=== PATIENT | male | born 1955 | race Caucasian/White ===

== ENCOUNTER 2020-04-01 07:53 | Day surgery (SDC) | payer OTHER ==
--- NOTE | 2020-03-26 15:19 | HP ---
DATE OF SURGERY: 04/01/2020 HISTORY OF PRESENT ILLNESS: The patient is a 64 year-old male who presented to the office for colonoscopy. The patient reports that his last colonoscopy was prior to his colon surgery and that he had some colon polyps. The patient had sigmoid resection with anastomosis for stenosis and diverticulitis in 2017. Lately, he has had some low back pain, some constipation. He denies any rectal bleeding. He reports a bowel movement every other day. He denies family history of colon cancer. PAST MEDICAL HISTORY: Enlarged prostate. Reflux. Headaches. Chronic back pain. Hypertension. PAST SURGICAL HISTORY: Knee surgery. Arm surgery. MEDICATIONS: Omeprazole. Tamsulosin. Metoprolol. Aspirin. Topiramate. ALLERGIES: NKDA. FAMILY HISTORY: Negative. SOCIAL HISTORY: Negative. REVIEW OF SYSTEMS: CONSTITUTIONAL: Denies fever or chills. CHEST: Denies shortness of breath or cough. CVS: Denies chest pain. ABDOMEN: Denies abdominal pain. Reports some constipation. Denies diarrhea, nausea, vomiting or rectal bleeding. : Denies history of hematuria. EXTREMITIES: Denies Swelling. PHYSICAL EXAMINATION: GENERAL: No acute distress. HEENT: No jaundice. Oral mucosa moist. NECK: No JVD. CHEST: Nonlabored. No shortness of breath. ABDOMEN: Soft, nondistended, nontender. EXTREMITIES: No edema. INTEGUMENTARY: Warm, pink, no rash. NEUROLOGIC: Alert, awake, oriented. PSYCHIATRIC: Appropriate mood and affect. ASSESSMENT: Change in bowel habits, constipation and lower abdominal pain, back pain. PLAN: Colonoscopy with Dr. Sai Gaviria. As dictated by Ila Block NP.
[2020-04-01] MEDS ORDERED: Lactated Ringers 1,000 ML IV ONE ×2 (07:57→11:56)
[2020-04-01] MEDS ORDERED: Lactated Ringers 1,000 ML IV SCH (08:30)
[2020-04-01] MEDS ORDERED: DIPRIVAN 200 MG/20 ML IV ONE ×2 (10:52→11:03)
[2020-04-01 12:09] VITALS: O2SAT 97
[2020-04-01 12:19] VITALS: BP 107/59; PULSE 52
--- NOTE | 2020-04-01 14:10 | OP ---
SURGERY DATE/TIME: 04/01/2020 1052 PREOPERATIVE DIAGNOSIS: Three year follow up of polyps. POSTOPERATIVE DIAGNOSES: 1) Three polyps, two in the ascending colon 8 mm and 10 mm in one jar; one in the mid ascending about 6 to 8 mm. 2) Anastomosis excellent. 3) Small amount of residual diverticulosis. PROCEDURE: Colonoscopy complete to cecum with hot polypectomy x3 in two jars. SURGEON: Sai Gaviria M.D. ANESTHESIA: MAC. COMPLICATIONS: None. CONDITION: Stable. PREP: Excellent. INDICATION: The patient presents for three year follow up for polyps. DESCRIPTION OF PROCEDURE: He is taken to endoscopy. Left lateral decubitus position. MAC sedation provided. Excellent anesthesia level was present and digital examination satisfactory. Prostate is large. Scope introduced. Anastomosis is normal. There is a little residual diverticulosis but not much. Scope advanced to the cecum. Base of the cecum, ileocecal valve, appendiceal orifice normal. In the ascending colon two polyps were taken with hot biopsy forceps and placed in one jar. Hepatic flexure one polyp taken and placed in a jar and it was taken with hot biopsy. Scope is then circumferentially withdrawn. Mild residual diverticulosis. The patient tolerated the procedure satisfactorily. PLAN: Follow up three years.
== END 2020-04-01 12:25 | disposition home or self-care (01) ==
LOC: SDC 07:53
PROVIDERS: ATTEND Surgery
DX: Z09 Encounter for follow-up examination after completed treatment for conditions other than malignant neoplasm (principal); D12.2 Benign neoplasm of ascending colon; D12.3 Benign neoplasm of transverse colon; Z87.19 Personal history of other diseases of the digestive system; Z86.010 Personal history of colon polyps; K57.30 Diverticulosis of large intestine without perforation or abscess without bleeding; Z90.49 Acquired absence of other specified parts of digestive tract
CPT/HCPCS: 88305; J2704

== ENCOUNTER 2021-07-14 06:51 | Day surgery (SDC) | payer OTHER ==
--- NOTE | 2021-07-11 08:25 | HP ---
DATE OF SURGERY: 07/14/2021 HISTORY OF PRESENT ILLNESS: The patient presents with complaints of rectal bleeding. He was scoped back in March 2020 and had a couple of little polyps tubular adenoma. Episodes of bright red rectal bleeding. The patient did have a sigmoid resection with anastomosis back in 2016 for stenosis and diverticulitis. PAST MEDICAL HISTORY: Hypertension, chronic back pain, reflux, enlarged prostate. PAST SURGICAL HISTORY: Knee surgery. Eye surgery. Sigmoid colon resection. ALLERGIES: NKDA. MEDICATIONS: Tamsulosin, omeprazole, topiramate, metoprolol, vitamin D, loratadine, aspirin. FAMILY HISTORY: Heart disease, diabetes, cancer unspecified. SOCIAL HISTORY: None. REVIEW OF SYSTEMS: CONSTITUTIONAL: Denies fever or chills. CHEST: Denies shortness of breath. CVS: Denies chest pain. ABDOMEN: Denies abdominal pain, nausea, vomiting, diarrhea, constipation. Reports rectal bleeding. PHYSICAL EXAMINATION: GENERAL: No acute distress. CHEST: Nonlabored. No shortness of breath. CVS: Regular rate and rhythm. ABDOMEN: Soft, nontender. IMPRESSION: Rectal bleeding. PLAN: Colonoscopy with Dr. Sai Gaviria. As dictated by Ila Block NP.
[2021-07-14] MEDS ORDERED: Lactated Ringers 1,000 ML IV ONE (07:23)
[2021-07-14] MEDS ORDERED: Lactated Ringers 1,000 ML IV SCH (07:30)
[2021-07-14] MEDS ORDERED: DIPRIVAN 200 MG/20 ML IV ONE (09:56)
[2021-07-14] MEDS ORDERED: ROBINUL ONE (10:04)
[2021-07-14 10:59] VITALS: PULSE 40
[2021-07-14 11:18] VITALS: BP 127/76; O2SAT 97
--- NOTE | 2021-07-14 11:41 | OP ---
SURGERY DATE/TIME: 07/14/2021 1001 PREOPERATIVE DIAGNOSIS: Previous colon resection, recent blood per rectum. POSTOPERATIVE DIAGNOSES: 1) Normal anastomosis with near complete sigmoid resection. 2) The patient has mild residual pancolonic diverticulosis. 3) The patient has very mild hemorrhoids. I do not see any active bleeding. I do not see any fissures. I do not see any blood on today's examination despite going forward and backwards two or three times with a generous amount of Gaviscon irrigation as there were bubbles initially. PROCEDURE: Colonoscopy complete to cecum. SURGEON: Sai Gaviria M.D. ANESTHESIA: MAC. COMPLICATIONS: None. CONDITION: Stable. INDICATION: A patient with some recent blood per rectum. He has had surgical resection for diverticulosis some years ago. DESCRIPTION OF PROCEDURE: He is taken to endoscopy. Left lateral decubitus position. Anal digital examination satisfactory. Tone satisfactory. Scope introduced. Mild internal hemorrhoids. No external hemorrhoids. Rectum satisfactory. Sigmoid there is a little residual sigmoid on the rectum with just two or three diverticula. No signs of bleeding. Anastomosis is normal, looked nice. The anastomosis may be scratching a little with some material that looks like it could. There is nothing today. Blind limb is satisfactory. It is side-to-end. The functional end cannulated. There is a lot of residual colon left about 100 cm. Advanced then over to the cecum. Base of the cecum, ileocecal valve, appendiceal orifice normal. Ascending, hepatic, transverse, splenic, descending, sigmoid, rectum there is just an occasional scattered diverticula. IMPRESSION: No signs of bleeding today. Follow up five years or sooner if symptoms occur.
== END 2021-07-14 11:15 | disposition home or self-care (01) ==
LOC: SDC 06:51
PROVIDERS: ATTEND Surgery
DX: K57.30 Diverticulosis of large intestine without perforation or abscess without bleeding (principal); K64.8 Other hemorrhoids; Z86.010 Personal history of colon polyps; Z90.49 Acquired absence of other specified parts of digestive tract; Z79.899 Other long term (current) drug therapy
CPT/HCPCS: J2704

== ENCOUNTER 2023-10-01 06:04 | Day surgery (SDC) | payer OTHER, MEDICARE ==
[2023-10-01] MEDS ORDERED: Lactated Ringers 1,000 ML IV SCH (06:30)
[2023-10-01 06:39] VITALS: RESP 18
[2023-10-01] MEDS ORDERED: Versed 2 MG/2 ML Injection ONE (07:51)
[2023-10-01] MEDS ORDERED: DIPRIVAN 200 MG/20 ML IV ONE (07:51)
[2023-10-01 09:07] VITALS: O2SAT 96
[2023-10-01 09:16] VITALS: BP 142/100; PULSE 57; TEMP 96.6
--- NOTE | 2023-10-01 13:41 | OP ---
SURGERY DATE/TIME: 10/01/2023 0754 PREOPERATIVE DIAGNOSES: 1) Abdominal pain. 2) History of colon polyps. POSTOPERATIVE DIAGNOSES: 1) Moderate gastritis. 2) Normal colon status post partial resection of sigmoid colon. PROCEDURES: 1) Esophagogastroduodenoscopy. 2) Colonoscopy. SURGEON: Dr. Chavez. ANESTHESIA: Medications were given by the anesthesia department. HISTORY: The patient is a 68-year-old white male patient who has been having problems with epigastric pain which he reports is somewhat better since recent discontinuing anti-inflammatory but he felt that he still would like to have the stomach evaluated. He is also due for colon checkup. He apparently had partial removal of his colon which sounds like it was due to diverticulosis but he was unsure about the possibility of polyps as well. The patient was then scheduled for the EGD and colonoscopy. DESCRIPTION OF PROCEDURE: The patient was given the medications by the anesthesia department. He had continuous pulse oximetry, ECG monitoring and intermittent blood pressure monitoring during the examination. He was placed in the left lateral decubitus position. A bite block was placed and the flexible Olympus gastroscope was used to intubate the oropharynx. A view of the larynx was obtained and was normal. The scope was easily introduced in the esophagus which appeared to be essentially normal throughout its length. The stomach was entered where normal gastric rugal folds were seen and these distended nicely with insufflation of air. The scope was passed along the greater curvature of the stomach to the antrum. There were streaks of erythema noted to the pylorus that were moderate in nature. No erosions or ulcerations however were noted. The pylorus was encountered and intubated. The duodenum inspected and found to be normal. The scope is withdrawn towards the stomach. Again, retroflex view of the lesser curvature, fundus and cardia regions of the stomach appeared to be essentially normal. The scope was then redirected towards the gastric antrum and biopsies were obtained from the antrum to rule out the presence of Helicobacter pylori-type organism and to confirm the presence of gastritis. The scope was then removed from the patient. Next, a digital rectal examination was performed and revealed normal anal sphincter tone, no masses and normal prostate. The flexible Olympus pediatric colonoscope was used to intubate the rectum. A view of the colon was developed sequentially to the cecum. There was noted in the sigmoid colon to be anastomotic site which appeared to be normal in its appearance. The colon was otherwise inspected to the cecum and was found to be essentially normal. No lesions were noted. The scope was removed from the patient who tolerated the procedure well and was sent to OP recovery in good condition. The prep was noted to be fair to good.
== END 2023-10-01 09:20 | disposition home or self-care (01) ==
LOC: SDC 06:04
PROVIDERS: ATTEND Family Medicine
DX: Z09 Encounter for follow-up examination after completed treatment for conditions other than malignant neoplasm (principal); Z86.010 Personal history of colon polyps; R10.9 Unspecified abdominal pain; K29.70 Gastritis, unspecified, without bleeding; Z79.899 Other long term (current) drug therapy
CPT/HCPCS: 82947; J2250; J2704

== ENCOUNTER 2024-03-18 11:16 | Observation (INO) | payer OTHER ==
--- NOTE | 2024-03-18 11:58 | ERPHSYRPT ---
- History of Present Illness Time Seen by Provider: 03/18/24 11:30 Source: patient Exam Limitations: no limitations Patient Subjective Stated Complaint: Dizziness Triage Nursing Assessment: Patient ambulated back to ED and transferred self to bed. Patient A+O X3. Patient's skin pink, warm and dry. Patient complains of dizziness, nausea, headache on and off for the past day. Patient states today his right arm started to get numb and tingle. Patient currently denies pain or discomfort. Physician History: 68-year-old male presents to our ED for evaluation of near syncope, dizziness, headache right arm pain. Symptoms have been constant. Symptoms have been ongoing for over a day. Symptoms are moderate in intensity. No specific worsening or improving factors. Patient denies a history of the same. He voices no other complaints or concerns at this time. No active chest pain at this time Portions of this note were created with voice recognition technology. There may be grammatical, spelling, punctuation or sound alike errors Timing/Duration: today Severity: moderate Modifying Factors: Improves With: nothing Associated Symptoms: denies symptoms Allergies/Adverse Reactions: No Known Drug Allergies Allergy (Verified 03/18/24 11:20) Home Medications: Omeprazole 40 mg PO DAILY 03/24/20 [History] Tamsulosin HCl 0.4 mg [Flomax 0.4 MG] 0.4 mg PO BID 03/24/20 [History] Topiramate 50 mg PO BID 03/24/20 [History] Loratadine 10 mg [Claritin 10 mg] 10 mg PO DAILY 07/05/21 [History] Ergocalciferol (Vitamin D2) [Vitamin D2] 1,250 mcg PO WEEKLY 09/27/23 [History] Testosterone Enanthate [Xyosted] 200 mg IM UD 09/27/23 [History] Tramadol HCl 50 mg [Ultram 50 mg] 50 mg PO Q6H PRN PRN 09/27/23 [History] Hx Tetanus, Diphtheria Vaccination/Date Given: Yes Hx Influenza Vaccination/Date Given: Yes Hx Pneumococcal Vaccination/Date Given: No Immunizations Up to Date: Yes Travel Risk - International Travel Have you traveled outside of the country in past 3 weeks: No - Emerging Infectious Disease Are you exhibiting symptoms associated with any current EIDs: No - Review of Systems Constitutional: No Symptoms, No Fever, No Chills Eyes: No Symptoms Ears, Nose, & Throat: No Symptoms Respiratory: No Symptoms, No Cough, No Dyspnea Cardiac: No Symptoms, No Chest Pain, No Edema, No Syncope Abdominal/Gastrointestinal: No Symptoms, No Abdominal Pain, No Nausea, No Vom iting, No Diarrhea Genitourinary Symptoms: No Symptoms, No Dysuria Musculoskeletal: No Symptoms, No Back Pain, No Neck Pain Skin: No Symptoms, No Rash Neurological: No Symptoms, No Dizziness, No Focal Weakness, No Sensory Changes Psychological: No Symptoms Endocrine: No Symptoms Hematologic/Lymphatic: No Symptoms Immunological/Allergic: No Symptoms All Other Systems: Reviewed and Negative - Past Medical History Pertinent Past Medical History: Yes Neurological History: Migraines ENT History: Cataracts, Other Cardiac History: Hypertension Respiratory History: Sleep Apnea, Other Endocrine Medical History: No Pertinent History Musculoskeletal History: Osteoarthritis GI Medical History: Hernia History: No Pertinent History Psycho-Social History: No Pertinent History Male Reproductive Disorders: Prostate Problems Other Medical History: wears a C-pap at night. - Past Surgical History Past Surgical History: Yes Neuro Surgical History: No Pertinent History Cardiac: No Pertinent History Respiratory: No Pertinent History Gastrointestinal: No Pertinent History, Colon Resection Genitourinary: No Pertinent History Musculoskeletal: Joint Replacement, Orthopedic Surgery Male Surgical History: Vasectomy Other Surgical History: bilateral knee replacement. arthroscopies bilateral knee, colon resection 2016 r/tdiverticuli - Social History Smoking Status: Never smoker Exposure to second hand smoke: No Drug Use: none Patient Lives Alone: No - Nursing Vital Signs Nursing Vital Signs: Initial Vital Signs Temperature 97.8 F 03/18/24 11:21 Pulse Rate 53 L 03/18/24 11:21 Respiratory Rate 20 03/18/24 11:21 Blood Pressure 139/88 03/18/24 11:21 O2 Sat by Pulse Oximetry 95 03/18/24 11:21 Pain Scale Pain Intensity 0 - Physical Exam General Appearance: no apparent distress, alert Eye Exam: PERRL/EOMI, eyes nml inspection Ears, Nose, Throat Exam: normal ENT inspection, TMs normal, pharynx normal, moist mucous membranes Neck Exam: normal inspection, non-tender, supple, full range of motion Respiratory Exam: normal breath sounds, lungs clear, airway intact, No respiratory distress Cardiovascular Exam: regular rate/rhythm, normal heart sounds, normal peripheral pulses Gastrointestinal/Abdomen Exam: soft, normal bowel sounds, No tenderness, No mass Back Exam: normal inspection, normal range of motion, No CVA tenderness, No vertebral tenderness Extremity Exam: normal inspection, normal range of motion, pelvis stable Neurologic Exam: alert, oriented x 3, cooperative, normal mood/affect, nml cerebellar function, nml station & gait, sensation nml, No motor deficits Skin Exam: normal color, warm, dry, No rash Lymphatic Exam: No adenopathy SpO2 Interpretation: normal SpO2: 96 O2 Delivery: Room Air - Course Nursing assessment & vital signs reviewed: Yes EKG Interpreted by Me: RATE, Sinus Rhythm, Left [place] Deviation, NORMAL INTERVALS, NORMAL QRS Ordered Tests: Active Orders 24 hr Category Date Time Status Associate Medical Director STAT Care 03/18/24 11:46 Active EKG-ER Only STAT Care 03/18/24 11:45 Active IV Insertion STAT Care 03/18/24 11:45 Active Pulse Oximetry (ED) STAT Care 03/18/24 11:45 Active CHEST 1 VIEW (PORTABLE) Stat Exams 03/18/24 11:46 Completed HEAD WITHOUT CONTRAST [CT] Stat Exams 03/18/24 13:00 Completed CBC W DIFF Stat Lab 03/18/24 11:25 Completed CMP Stat Lab 03/18/24 11:25 Completed NT PRO BNPII Stat Lab 03/18/24 11:25 Completed TROPONIN Q4H Lab 03/18/24 11:25 Completed TROPONIN Q4H Lab 03/18/24 14:19 Completed TROPONIN Q4H Lab 03/18/24 20:00 Ordered Lab/Rad Data: Laboratory Result Diagrams 03/18/24 11:25 03/18/24 11:25 Laboratory Results 03/18/24 03/18/24 03/18/24 Range/Units 14:19 11:25 11:25 WBC (4.0-10.5) x10^3/uL RBC (4.1-5.6) x10^6/uL Hgb (12.5-18.0) g/dL Hct (42-50) % MCV (78-100) fL MCH (26-32) pg MCHC (32-36) g/dL RDW (11.5-14.0) % Plt Count (150-450) x10^3/uL MPV (7.5-11.0) fL Gran % (36.0-66.0) % Immature Gran % (Auto) (0.00-0.4) % Nucleat RBC Rel Count (0.00-0.1) % Eos # (Auto) (0-0.5) x10^3/uL Immature Gran # (Auto) (0.00-0.03) x10^3u/L Absolute Lymphs (auto) (1.0-4.6) x10^3/uL Absolute Monos (auto) (0.0-1.3) x10^3/uL Absolute Nucleated RBC (0.00-0.01) x10^3u/L Lymphocytes % (24.0-44.0) % Monocytes % (0.0-12.0) % Eosinophils % (0.00-5.0) % Basophils % (0.0-0.4) % Absolute Granulocytes (1.4-6.9) x10^3/uL Basophils # (0-0.4) x10^3/uL Sodium 145 (135-145) mmol/L Potassium 3.9 (3.5-5.1) mmol/L Chloride 113 H (98-107) mmol/L Carbon Dioxide 19 L (22-30) mmol/L Anion Gap 16.9 H (5-15) MEQ/L BUN 16 (9-20) mg/dL Creatinine 1.17 (0.66-1.25) mg/dL Estimated GFR 67.9 ML/MIN Glucose 109 H (74-106) mg/dL Calcium 9.2 (8.4-10.2) mg/dL Total Bilirubin 1.70 H (0.2-1.3) mg/dL AST 30 (17-59) U/L ALT 38 (0-50) U/L Alkaline Phosphatase 59 (38-126) U/L Troponin I < 0.012 0.022 (0.000-0.033) ng/mL NT-Pro-B Natriuret Pep < 20.0 (<300) pg/mL Serum Total Protein 7.3 (6.3-8.2) g/dL Albumin 4.4 (3.5-5.0) g/dL 03/18/24 Range/Units 11:25 WBC 5.3 (4.0-10.5) x10^3/uL RBC 5.77 H (4.1-5.6) x10^6/uL Hgb 17.5 (12.5-18.0) g/dL Hct 48.6 (42-50) % MCV 84.2 (78-100) fL MCH 30.3 (26-32) pg MCHC 36.0 (32-36) g/dL RDW 15.6 H (11.5-14.0) % Plt Count 163 (150-450) x10^3/uL MPV 11.8 H (7.5-11.0) fL Gran % 61.2 (36.0-66.0) % Immature Gran % (Auto) 0.4 (0.00-0.4) % Nucleat RBC Rel Count 0.0 (0.00-0.1) % Eos # (Auto) 0.13 (0-0.5) x10^3/uL Immature Gran # (Auto) 0.02 (0.00-0.03) x10^3u/L Absolute Lymphs (auto) 1.39 (1.0-4.6) x10^3/uL Absolute Monos (auto) 0.46 (0.0-1.3) x10^3/uL Absolute Nucleated RBC 0.00 (0.00-0.01) x10^3u/L Lymphocytes % 26.3 (24.0-44.0) % Monocytes % 8.7 (0.0-12.0) % Eosinophils % 2.5 (0.00-5.0) % Basophils % 0.9 (0.0-0.4) % Absolute Granulocytes 3.24 (1.4-6.9) x10^3/uL Basophils # 0.05 (0-0.4) x10^3/uL Sodium (135-145) mmol/L Potassium (3.5-5.1) mmol/L Chloride (98-107) mmol/L Carbon Dioxide (22-30) mmol/L Anion Gap (5-15) MEQ/L BUN (9-20) mg/dL Creatinine (0.66-1.25) mg/dL Estimated GFR ML/MIN Glucose (74-106) mg/dL Calcium (8.4-10.2) mg/dL Total Bilirubin (0.2-1.3) mg/dL AST (17-59) U/L ALT (0-50) U/L Alkaline Phosphatase (38-126) U/L Troponin I (0.000-0.033) ng/mL NT-Pro-B Natriuret Pep (<300) pg/mL Serum Total Protein (6.3-8.2) g/dL Albumin (3.5-5.0) g/dL - Progress Progress: improved Progress Note: Case discussed with , hospitalist accepts admission to observation at 3:20 PM. Plan of care discussed with patient. He agrees to admission [facility] for further evaluation and treatment. 68-year-old male presents to our ED for evaluation of dizziness and near syncope headache and pain to his right arm. CT head shows 2 new bilateral lacunar infarcts. Paranasal sinus disease. Troponin negative x 2. Patient states he is normally bradycardic. This has been going on for some time. His primary care doctor is aware of it. However patient is asymptomatic and reports that they are not actively treating this finding. Patient will be admitted for fur ther evaluation and treatment. Portions of this note were created with voice recognition technology. There may be grammatical, spelling, punctuation or sound alike errors Complexity problem addressed is moderate acute complicated. No critical care time. Complex of data reviewed and analyzed is extensive. Test ordered test reviewed results analyzed and correlated clinically with history and physical examination. Risk of complication and or risk of morbidity/mortality patient management is high. Management discussed with hospitalist who accepts admission to observation. Vital stable. Time spent to admit patient approximately 20 minutes. Plan of care established for shared decision making. No social determinants of health present impede follow-up. Portions of this note were created with voice recognition technology. There may be grammatical, spelling, punctuation or sound alike errors 03/18/24 15:22 Counseled pt/family regarding: lab results, diagnosis, rad results - Departure Departure Disposition: Observation Clinical Impression: Dizziness, Near syncope, Chest pain, Paranasal sinus disease, Lacunar infarction, Bradycardia Condition: Stable Critical Care Time: No Referrals: TAWANA VILLAR [Primary Care Provider] - Follow up/PCP as directed
[2024-03-18 12:05] LABS: Absolute Neutrophil Ct (ANC) 3.24 x10^3/uL (1.4-6.9); BASOPHIL % 0.9 % (0.0-0.4); Basophil (Absolute #) 0.05 x10^3/uL (0-0.4); Eosinophil % 2.5 % (0.00-5.0); Eosinophil (Absolute #) 0.13 x10^3/uL (0-0.5); Hematocrit 48.6 % (42-50); Hemoglobin 17.5 g/dL (12.5-18.0); IMMATURE GRAN # 0.02 x10^3u/L (0.00-0.03); IMMATURE GRAN % 0.4 % (0.00-0.4); Lymphocyte (Absolute #) 1.39 x10^3/uL (1.0-4.6); Lymphocytes % 26.3 % (24.0-44.0); Mean Cell Volume 84.2 fL (78-100); Mean Corpuscular Hemoglobin 30.3 pg (26-32); Mean Platelet Volume 11.8 fL (7.5-11.0); Monocyte (Absolute #) 0.46 x10^3/uL (0.0-1.3); Monocytes % 8.7 % (0.0-12.0); Neutrophil % 61.2 % (36.0-66.0); Platelet Count 163 x10^3/uL (150-450); Red Blood Count 5.77 x10^6/uL (4.1-5.6); Red Cell Distribution Width 15.6 % (11.5-14.0); White Blood Count 5.3 x10^3/uL (4.0-10.5)
[2024-03-18 12:28] LABS: ALBUMIN 4.4 g/dL (3.5-5.0); ALKALINE PHOSPHATASE 59 U/L (38-126); ANION GAP 16.9 MEQ/L (5-15); BLOOD UREA NITROGEN 16 mg/dL (9-20); CHLORIDE 113 mmol/L (98-107); Calcium 9.2 mg/dL (8.4-10.2); Carbon Dioxide 19 mmol/L (22-30); Creatinine 1 1.17 mg/dL (0.66-1.25); EST GLOMERULAR FILTRATION RATE 67.9 ML/MIN; Glucose 109 mg/dL (74-106); NT PRO BNPII < 20.0 pg/mL (<300); Potassium 3.9 mmol/L (3.5-5.1); SGOT/AST 30 U/L (17-59); SGPT/ALT 38 U/L (0-50); SODIUM 145 mmol/L (135-145); Total Protein 7.3 g/dL (6.3-8.2)
--- NOTE | 2024-03-18 13:04 | XRAY ---
Indication: Chest pain. Comparison: None Portable chest inflated and clear. Heart and mediastinal structures within normal limits. Bony thorax intact with mild degenerative changes. Impression: Nonacute chest.
--- NOTE | 2024-03-18 13:38 | XRAY ---
Indication: Dizziness. Stroke. Multiple contiguous axial images obtained through the head without contrast. Comparison: October 03, 2021 Again age-appropriate global atrophy and minimal periventricular degenerative micro-ischemia bilaterally. Basal ganglia demonstrates new remote lacunar infarcts bilaterally. No acute intracranial hemorrhage, abnormal extra axial fluid collection, or mass effect. Fourth ventricle is midline without hydrocephalus. Bony calvarium intact. Again near complete opacification left maxillary sinus and lesser degree right maxillary/both ethmoid sinuses. Mastoid air cells are clear. Impression: Continued nonacute senile brain. New remote basal ganglia lacunar infarcts. Again incidental paranasal sinus disease.
--- NOTE | 2024-03-18 15:51 | PCM.HP ---
History of Present Illness - Chief Complaint Chief Complaint: dizziness, near syncope Date: 03/18/24 History of Present Illness: is a 68 year old male with PMHX of migraines, sleep apnea, cataracts, HTN, OA (of BL knees and lumbar spine- follows pain management), Hernia, chronic bradycardia since childhood, and prostate problems. He presented to our ED for evaluation of near syncope, intermittent dizziness, headache that started in right eye, and right arm pain. Patient states today his right arm started to get numb and tingle, sxs have been constant. He also has increased dizziness when turning his head to the right. He states he has chronic right eye problems since cataract removal. When he has migraines it always starts in his right eye as well. Symptoms have been ongoing for over a day. Symptoms are moderate in intensity. . He states he felt like his BP was getting high at home and took one of his old BP meds but cut it in half. His old blood pressure medication is metoprolol 50 mg. He did not check his BP prior to taking the medication as he does not know how to use the blood pressure machine he has at home. Pt is bradycardic on admission. No active chest pain at this time. He does report chest pain about one and half months ago that has resolved. He was to see a emu farm worker but missed the appointment. CT of head completed in ER and shows New remote basal ganglia lacunar infarcts. Again incidental paranasal sinus disease. He denies ever being diagnosed with lacunar infarcts in the past. MRI of brain, and neurology consult ordered for further evaluation. Echo and carotid duplex ordered. Will check orthostats in the AM. He denies CP, Abd. pain, N/V/D. - Review of Systems Constitutional: No Fever, No Chills Eyes: No Symptoms Ears, Nose, & Throat: No Symptoms Respiratory: No Cough, No Short Of Breath Cardiac: No Chest Pain, No Edema, No Syncope Abdominal/Gastrointestinal: No Abdominal Pain, No Nausea, No Vomiting, No Diarrhea Genitourinary Symptoms: No Dysuria Musculoskeletal: No Back Pain, No Neck Pain Skin: No Rash Neurological: Dizziness, Headache, Parasthesia, No Focal Weakness, No Sensory Changes Psychological: No Symptoms Endocrine: No Symptoms Hematologic/Lymphatic: No Symptoms Immunological/Allergic: No Symptoms Medications & Allergies Home Medications: Home Medication List Omeprazole 40 mg PO DAILY 05/27/20 [History Confirmed 03/18/24] Tamsulosin HCl 0.4 mg [Flomax 0.4 MG] 0.4 mg PO DAILY 03/24/20 [History Confirmed 03/18/24] Topiramate 50 mg PO BID 03/24/20 [History Confirmed 03/18/24] Loratadine 10 mg [Claritin 10 mg] 10 mg PO DAILY 07/05/21 [History Confir med 03/18/24] Ergocalciferol (Vitamin D2) [Vitamin D2] 1,250 mcg PO WEEKLY 09/27/23 [History Confirmed 03/18/24] Testosterone Enanthate [Xyosted] 200 mg IM UD 09/27/23 [History Confirmed 03/18/24] Tramadol HCl 50 mg [Ultram 50 mg] 50 mg PO Q6H PRN PRN 09/27/23 [History Confirmed 03/18/24] Albuterol Sulfate 1 neb IH Q6HPRN PRN 03/18/24 [History Confirmed 03/18/24] Albuterol Sulfate [Albuterol Sulfate Hfa] 2 puff IH Q6HPRN PRN 03/18/24 [History Confirmed 03/18/24] Allergies/Adverse Reactions: Allergies Allergy/AdvReac Type Severity Reaction Status Date / Time No Known Drug Allergies Allergy Verified 03/18/24 11:20 - Past Medical History Past Medical History: Yes Neurological History: Migraines ENT History: Cataracts, Other Cardiac History: Hypertension Respiratory History: Sleep Apnea, Other Endocrine Medical History: No Pertinent History Musculoskelatal History: Osteoarthritis GI Medical History: Hernia History: No Pertinent History Pyscho-Social History: No Pertinent History Male Reproductive Disorders: Prostate Problems Comment: wears a C-pap at night. - Past Surgical History Past Surgical History: Yes Neuro Surgical History: No Pertinent History Cardiac History: No Pertinent History Respiratory Surgery: No Pertinent History GI Surgical History: No Pertinent History, Colon Resection Genitourinary Surgical Hx: No Pertinent History Musculskeletal Surgical Hx: Joint Replacement, Orthopedic Surgery Male Surgical History: Vasectomy Other Surgical History: bilateral knee replacement. arthroscopies bilateral knee, colon resection 2016 r/tdiverticuli - Social History Smoking Status: Never smoker Exposure to second hand smoke: No Alcohol: None Drug Use: none - Social Determinants of Health Will the patient participate in the screening: Yes Do you worry about a steady place to live?: No Do you have any problems with any of the following?: No known problems In the past 12 months,have you had to go without utilities?: No Have you or anyone in your house had to go without enough: No Transportation Issues: No Has anyone in your support network made you feel unsafe?: No - Physical Exam Vital Signs: Vital Signs - 24 hr Temp Pulse Resp BP BP Pulse Ox 03/18/24 15:27 96 03/18/24 15:00 52 L 125/88 97 03/18/24 14:30 48 L 126/82 95 03/18/24 14:29 49 L 126/83 95 03/18/24 13:00 49 L 151/100 96 03/18/24 12:30 63 135/94 94 L 03/18/24 12:00 52 L 144/95 96 03/18/24 11:48 96 03/18/24 11:21 97.8 F 53 L 20 139/88 95 General Appearance: no apparent distress, alert Neurologic Exam: alert, oriented x 3, cooperative, normal mood/affect, nml cerebellar function, nml station & gait, sensation nml, No motor deficits Eye Exam: PERRL/EOMI, eyes nml inspection Ears, Nose, Throat Exam: normal ENT inspection, TMs normal, pharynx normal, moist mucous membranes Neck Exam: normal inspection, non-tender, supple, full range of motion Respiratory Exam: normal breath sounds, lungs clear, No respiratory distress Cardiovascular Exam: regular rate/rhythm, normal heart sounds, normal peripheral pulses, bradycardia Gastrointestinal/Abdomen Exam: soft, normal bowel sounds, No tenderness, No mass Back Exam: normal inspection, normal range of motion, No CVA tenderness, No vertebral tenderness Extremity Exam: normal inspection, normal range of motion, pelvis stable Skin Exam: normal color, warm, dry, No rash Lymphatic Exam: No adenopathy Results - Labs Lab/Micro Results: Lab Results-Last 24 Hours 03/18/24 03/18/24 03/18/24 Range/Units 11:25 11:25 11:25 WBC 5.3 (4.0-10.5) x10^3/uL RBC 5.77 H (4.1-5.6) x10^6/uL Hgb 17.5 (12.5-18.0) g/dL Hct 48.6 (42-50) % MCV 84.2 (78-100) fL MCH 30.3 (26-32) pg MCHC 36.0 (32-36) g/dL RDW 15.6 H (11.5-14.0) % Plt Count 163 (150-450) x10^3/uL MPV 11.8 H (7.5-11.0) fL Gran % 61.2 (36.0-66.0) % Immature Gran % (Auto) 0.4 (0.00-0.4) % Nucleat RBC Rel Count 0.0 (0.00-0.1) % Eos # (Auto) 0.13 (0-0.5) x10^3/uL Immature Gran # (Auto) 0.02 (0.00-0.03) x10^3u/L Absolute Lymphs (auto) 1.39 (1.0-4.6) x10^3/uL Absolute Monos (auto) 0.46 (0.0-1.3) x10^3/uL Absolute Nucleated RBC 0.00 (0.00-0.01) x10^3u/L Lymphocytes % 26.3 (24.0-44.0) % Monocytes % 8.7 (0.0-12.0) % Eosinophils % 2.5 (0.00-5.0) % Basophils % 0.9 (0.0-0.4) % Absolute Granulocytes 3.24 (1.4-6.9) x10^3/uL Basophils # 0.05 (0-0.4) x10^3/uL Sodium 145 (135-145) mmol/L Potassium 3.9 (3.5-5.1) mmol/L Chloride 113 H (98-107) mmol/L Carbon Dioxide 19 L (22-30) mmol/L Anion Gap 16.9 H (5-15) MEQ/L BUN 16 (9-20) mg/dL Creatinine 1.17 (0.66-1.25) mg/dL Estimated GFR 67.9 ML/MIN Glucose 109 H (74-106) mg/dL Calcium 9.2 (8.4-10.2) mg/dL Total Bilirubin 1.70 H (0.2-1.3) mg/dL AST 30 (17-59) U/L ALT 38 (0-50) U/L Alkaline Phosphatase 59 (38-126) U/L Troponin I 0.022 (0.000-0.033) ng/mL NT-Pro-B Natriuret Pep < 20.0 (<300) pg/mL Serum Total Protein 7.3 (6.3-8.2) g/dL Albumin 4.4 (3.5-5.0) g/dL 03/18/24 Range/Units 14:19 WBC (4.0-10.5) x10^3/uL RBC (4.1-5.6) x10^6/uL Hgb (12.5-18.0) g/dL Hct (42-50) % MCV (78-100) fL MCH (26-32) pg MCHC (32-36) g/dL RDW (11.5-14.0) % Plt Count (150-450) x10^3/uL MPV (7.5-11.0) fL Gran % (36.0-66.0) % Immature Gran % (Auto) (0.00-0.4) % Nucleat RBC Rel Count (0.00-0.1) % Eos # (Auto) (0-0.5) x10^3/uL Immature Gran # (Auto) (0.00-0.03) x10^3u/L Absolute Lymphs (auto) (1.0-4.6) x10^3/uL Absolute Monos (auto) (0.0-1.3) x10^3/uL Absolute Nucleated RBC (0.00-0.01) x10^3u/L Lymphocytes % (24.0-44.0) % Monocytes % (0.0-12.0) % Eosinophils % (0.00-5.0) % Basophils % (0.0-0.4) % Absolute Granulocytes (1.4-6.9) x10^3/uL Basophils # (0-0.4) x10^3/uL Sodium (135-145) mmol/L Potassium (3.5-5.1) mmol/L Chloride (98-107) mmol/L Carbon Dioxide (22-30) mmol/L Anion Gap (5-15) MEQ/L BUN (9-20) mg/dL Creatinine (0.66-1.25) mg/dL Estimated GFR ML/MIN Glucose (74-106) mg/dL Calcium (8.4-10.2) mg/dL Total Bilirubin (0.2-1.3) mg/dL AST (17-59) U/L ALT (0-50) U/L Alkaline Phosphatase (38-126) U/L Troponin I < 0.012 (0.000-0.033) ng/mL NT-Pro-B Natriuret Pep (<300) pg/mL Serum Total Protein (6.3-8.2) g/dL Albumin (3.5-5.0) g/dL - Radiology Impressions Radiology Exams & Impressions: Radiology Procedures Category Date Time Status CHEST 1 VIEW (PORTABLE) Stat Exams 03/18/24 11:46 Completed HEAD WITHOUT CONTRAST [CT] Stat Exams 03/18/24 13:00 Completed Assessment/Plan (1) Bradycardia Current Visit: Yes Status: Acute Assessment & Plan: - HR 40-50's- pt reports this is chroinc- however BP med may have exacerbated - EKG - tele - may be cause of near syncope - echo - does take tramadol for pain for OA - Pt took 25mg of metoprolol from an old script he had at home. Code(s): R00.1 - BRADYCARDIA, UNSPECIFIED (2) Dizziness Current Visit: Yes Status: Acute Assessment & Plan: - is bradycardic on monitor - up as tolerated - carotid duplex - near syncope Code(s): R42 - DIZZINESS AND GIDDINESS (3) Near syncope Current Visit: Yes Status: Acute Assessment & Plan: - see aboves plans - CT head: Impression: Continued nonacute senile brain. New remote basal ganglia lacunar infarcts. Again incidental paranasal sinus disease. - MRI brain pending (4) Sleep apnea Current Visit: Yes Status: Chronic Assessment & Plan: - continue CPAP at night Code(s): G47.30 - SLEEP APNEA, UNSPECIFIED (5) Dehydration Current Visit: Yes Status: Acute Assessment & Plan: - anion gap 16.9 - IVF Code(s): E86.0 - DEHYDRATION (6) Lacunar infarction Current Visit: Yes Status: Chronic Assessment & Plan: - appears chronic per CT head - MRI pending - neurology consult Code(s): I63.81 - OTHER CEREB INFRC DUE TO OCCLS OR STENOSIS OF SMALL ARTERY (7) Paranasal sinus disease Current Visit: Yes Status: Chronic Assessment & Plan: - as seen on CT - Continue daily allergy medication - Flonase started Code(s): J34.9 - UNSPECIFIED DISORDER OF NOSE AND NASAL SINUSES (8) Hx of migraines Current Visit: Yes Status: Acute Assessment & Plan: - continue topamax - may be migraine related VTE: SCD PPI: omeprazole Next of Kin: D/C plan: 1-2 days Code status: Full Code(s): Z86.69 - PERSONAL HISTORY OF DIS OF THE NERVOUS SYS AND SENSE ORGANS Telemedicine Encounter - Telemedicine Encounter Telemedicine Encounter: The entirety of this encounter was performed via Telemedicine" This visit was performed using real-time audio and video connection between my location and thepatients locationwith the assistance of a surrogateat the patients location. Written or verbal consent was obtained from the patient/guardian to perform this visit [facility] technology. Any patient questions regarding the telemedicine interaction were answered.
[2024-03-18] MEDS: Sodium Chloride 0.9% 1000 ML 1,000 ML IV SCH (17:02)
[2024-03-18] MEDS ORDERED: PROVENTIL 2.5 MG/3 ML NEB IH PRN ×2 (17:04→17:31)
--- NOTE | 2024-03-18 17:19 | XRAY ---
Indication: Near syncope. Two-dimensional sonogram and color Doppler imaging carotid arteries of the neck performed. Comparison: None Examination right carotid circulation demonstrates widely patent common carotid, carotid bulb, internal carotid, and external carotid arteries. PSV CCA is 63 cm/s. PSV ICA is 60 cm/s. ICA/CCA ratio is 0.9. Normal antegrade vertebral artery flow. Examination left carotid circulation demonstrates very minimal calcified plaquing proximal internal carotid artery. Otherwise widely patent common carotid, carotid bulb, and external carotid arteries. PSV CCA is 85 cm/s. PSV ICA is 60 cm/s. ICA/CCA ratio 0.7. Normal antegrade vertebral artery flow. Impression: Widely patent right carotid circulation. Very minimal arteriosclerotic disease left internal carotid artery. Velocity measurements and ratios negative for hemodynamically significant flow limiting stenosis.
[2024-03-18] MEDS ORDERED: TYLENOL 325 MG PO PRN (17:30)
[2024-03-18] MEDS ORDERED: VENTOLIN COMMON CANISTER IH SCH (17:45)
[2024-03-18] MEDS ORDERED: TESTOSTERONE ENANTHATE IM SCH (17:45)
[2024-03-18] MEDS ORDERED: AUTO INJCT IM SCH (17:45)
[2024-03-18] MEDS ORDERED: VENTOLIN COMMON CANISTER IH PRN (17:47)
--- NOTE | 2024-03-18 18:37 | PCM.CONS ---
History of Present Illness - Reason for Consult Chief Complaint: dizziness, near syncope Requesting Provider: NIGEL CATES MD Consulting Provider: SOTERO LIPSCOMB MD History of Present Illness: is a 68 year old male. Medications & Allergies Home Medications: Home Medication List Omeprazole 40 mg PO DAILY 03/24/20 [History Confirmed 03/18/24] Tamsulosin HCl 0.4 mg [Flomax 0.4 MG] 0.4 mg PO DAILY 03/24/20 [History Confirmed 03/18/24] Topiramate 50 mg PO BID 03/24/20 [History Confirmed 03/18/24] Loratadine 10 mg [Claritin 10 mg] 10 mg PO DAILY 07/05/21 [History Confirmed 03/18/24] Ergocalciferol (Vitamin D2) [Vitamin D2] 1,250 mcg PO WEEKLY 09/27/23 [History Confirmed 03/18/24] Testosterone Enanthate [Xyosted] 200 mg IM UD 09/27/23 [History Confirmed 03/18/24] Tramadol HCl 50 mg [Ultram 50 mg] 50 mg PO Q6H PRN PRN 09/27/23 [History Confirmed 03/18/24] Albuterol Sulfate 1 neb IH Q6HPRN PRN 03/18/24 [History Confirmed 03/18/24] Albuterol Sulfate [Albuterol Sulfate Hfa] 2 puff IH Q6HPRN PRN 03/18/24 [History Confirmed 03/18/24] Allergies/Adverse Reactions: Allergies Allergy/AdvReac Type Severity Reaction Status Date / Time No Known Drug Allergies Allergy Verified 03/18/24 11:20 - Past Medical History Past Medical History: Yes Neurological History: Migraines ENT History: Cataracts, Other Cardiac History: Hypertension Respiratory History: Sleep Apnea, Other Endocrine Medical History: No Pertinent History Musculoskelatal History: Osteoarthritis GI Medical History: Hernia History: No Pertinent History Pyscho-Social History: No Pertinent History Male Reproductive Disorders: Prostate Problems Comment: wears a C-pap at night. - Past Surgical History Past Surgical History: Yes Neuro Surgical History: No Pertinent History Cardiac History: No Pertinent History Respiratory Surgery: No Pertinent History GI Surgical History: No Pertinent History, Colon Resection Genitourinary Surgical Hx: No Pertinent History Musculskeletal Surgical Hx: Joint Replacement, Orthopedic Surgery Male Surgical History: Vasectomy Other Surgical History: bilateral knee replacement. arthroscopies bilateral knee, colon resection 2016 r/tdiverticuli - Social History Smoking Status: Never smoker Exposure to second hand smoke: No Alcohol: None Drug Use: none - Social Determinants of Health Will the patient participate in the screening: Yes Do you worry about a steady place to live?: No Do you have any problems with any of the following?: No known problems In the past 12 months,have you had to go without utilities?: No Have you or anyone in your house had to go without enough: No Transportation Issues: No Has anyone in your support network made you feel unsafe?: No Does the patient want assistance with any of the above?: No - Physical Exam Vital Signs: Vital Signs - 24 hr Temp Pulse Resp BP BP Pulse Ox 03/18/24 16:02 52 L 24 95 03/18/24 15:50 97.5 F 52 L 24 143/78 91 L 03/18/24 15:27 96 03/18/24 15:00 52 L 125/88 97 03/18/24 14:30 48 L 126/82 95 03/18/24 14:29 49 L 126/83 95 03/18/24 13:00 49 L 151/100 96 03/18/24 12:30 63 135/94 94 L 03/18/24 12:00 52 L 144/95 96 03/18/24 11:48 96 03/18/24 11:21 97.8 F 53 L 20 139/88 95 Results - Labs Lab/Micro Results: Lab Results-Last 24 Hours 03/18/24 03/18/24 03/18/24 Range/Units 11:25 11:25 11:25 WBC 5.3 (4.0-10.5) x10^3/uL RBC 5.77 H (4.1-5.6) x10^6/uL Hgb 17.5 (12.5-18.0) g/dL Hct 48.6 (42-50) % MCV 84.2 (78-100) fL MCH 30.3 (26-32) pg MCHC 36.0 (32-36) g/dL RDW 15.6 H (11.5-14.0) % Plt Count 163 (150-450) x10^3/uL MPV 11.8 H (7.5-11.0) fL Gran % 61.2 (36.0-66.0) % Immature Gran % (Auto) 0.4 (0.00-0.4) % Nucleat RBC Rel Count 0.0 (0.00-0.1) % Eos # (Auto) 0.13 (0-0.5) x10^3/uL Immature Gran # (Auto) 0.02 (0.00-0.03) x10^3u/L Absolute Lymphs (auto) 1.39 (1.0-4.6) x10^3/uL Absolute Monos (auto) 0.46 (0.0-1.3) x10^3/uL Absolute Nucleated RBC 0.00 (0.00-0.01) x10^3u/L Lymphocytes % 26.3 (24.0-44.0) % Monocytes % 8.7 (0.0-12.0) % Eosinophils % 2.5 (0.00-5.0) % Basophils % 0.9 (0.0-0.4) % Absolute Granulocytes 3.24 (1.4-6.9) x10^3/uL Basophils # 0.05 (0-0.4) x10^3/uL Sodium 145 (135-145) mmol/L Potassium 3.9 (3.5-5.1) mmol/L Chloride 113 H (98-107) mmol/L Carbon Dioxide 19 L (22-30) mmol/L Anion Gap 16.9 H (5-15) MEQ/L BUN 16 (9-20) mg/dL Creatinine 1.17 (0.66-1.25) mg/dL Estimated GFR 67.9 ML/MIN Glucose 109 H (74-106) mg/dL Calcium 9.2 (8.4-10.2) mg/dL Total Bilirubin 1.70 H (0.2-1.3) mg/dL AST 30 (17-59) U/L ALT 38 (0-50) U/L Alkaline Phosphatase 59 (38-126) U/L Troponin I 0.022 (0.000-0.033) ng/mL NT-Pro-B Natriuret Pep < 20.0 (<300) pg/mL Serum Total Protein 7.3 (6.3-8.2) g/dL Albumin 4.4 (3.5-5.0) g/dL 03/18/24 Range/Units 14:19 WBC (4.0-10.5) x10^3/uL RBC (4.1-5.6) x10^6/uL Hgb (12.5-18.0) g/dL Hct (42-50) % MCV (78-100) fL MCH (26-32) pg MCHC (32-36) g/dL RDW (11.5-14.0) % Plt Count (150-450) x10^3/uL MPV (7.5-11.0) fL Gran % (36.0-66.0) % Immature Gran % (Auto) (0.00-0.4) % Nucleat RBC Rel Count (0.00-0.1) % Eos # (Auto) (0-0.5) x10^3/uL Immature Gran # (Auto) (0.00-0.03) x10^3u/L Absolute Lymphs (auto) (1.0-4.6) x10^3/uL Absolute Monos (auto) (0.0-1.3) x10^3/uL Absolute Nucleated RBC (0.00-0.01) x10^3u/L Lymphocytes % (24.0-44.0) % Monocytes % (0.0-12.0) % Eosinophils % (0.00-5.0) % Basophils % (0.0-0.4) % Absolute Granulocytes (1.4-6.9) x10^3/uL Basophils # (0-0.4) x10^3/uL Sodium (135-145) mmol/L Potassium (3.5-5.1) mmol/L Chloride (98-107) mmol/L Carbon Dioxide (22-30) mmol/L Anion Gap (5-15) MEQ/L BUN (9-20) mg/dL Creatinine (0.66-1.25) mg/dL Estimated GFR ML/MIN Glucose (74-106) mg/dL Calcium (8.4-10.2) mg/dL Total Bilirubin (0.2-1.3) mg/dL AST (17-59) U/L ALT (0-50) U/L Alkaline Phosphatase (38-126) U/L Troponin I < 0.012 (0.000-0.033) ng/mL NT-Pro-B Natriuret Pep (<300) pg/mL Serum Total Protein (6.3-8.2) g/dL Albumin (3.5-5.0) g/dL - Radiology Impressions Radiology Exams & Impressions: Radiology Procedures Category Date Time Status CAROTID BILATERAL [US] Routine Exams 03/18/24 15:53 Completed CHEST 1 VIEW (PORTABLE) Stat Exams 03/18/24 11:46 Completed ECHO W/2D AND DOPPLER [US] Routine Exams 03/18/24 15:52 Taken HEAD WITHOUT CONTRAST [CT] Stat Exams 03/18/24 13:00 Completed MRI BRAIN W/O CONTRAST [MRI] Routine Exams 03/18/24 16:01 Ordered - Other Procedures and Tests Respiratory Therapy 03/18/24 16:02 RT Miscellaneous Order ROUTINE 03/19/24 07:00 Respiratory Therapy Assessment DAILY Assessment/Plan (1) Near syncope Current Visit: Yes Status: Acute Assessment & Plan: Physician Signature This document was electronically signed by: Sotero Lipscomb MD Consult Cover Page FROM: [facility] Now, Call Back Number: [phone] SUBJECT: Consult Recommendations Date and Time of Report: 03/18/2024 06:35 PM ET Items Contained in this Document: Neurology Consult Note Consult Information Member Facility: [facility] Facility Visit/ Consult ID: [id number] Facility Time Zone: ET Date and Time of Request: 03-18-2024 04:57 PM ET Requesting Clinician: LORY Patient Name: GODWIN MUIR Date of : 1955 Gender: Male Patient identity was confirmed at the beginning of the consult with the patient/family/staff using two personal identifiers: Patient name and Reason for Consult Reason for Consult: Inpatient General Chief Complaint: near syncope and headache Patient Location and Admission Status: Inpatient Family Members and Medical Staff Present During Exam: Nurse Lory History of Present Illness: Mr. Muir is a 68-year-old man with a past medical history of migraines, sleep apnea, cataracts, HTN, OA (BL knees and lumbar spine, follows pain management), hernia, chronic bradycardia since childhood, and prostate problems. He presented to the ED for evaluation of near syncope, intermittent dizziness, headache starting in the right eye, and right arm pain. He reported that his right arm became numb and tingly, with constant symptoms. He also experienced increased dizziness when turning his head to the right. He has chronic right eye problems since cataract removal, and his migraines always start in his right eye. Symptoms have persisted for over a day and are moderate in intensity. He felt his BP was high at home and took half of his old metoprolol 50 mg but did not check his BP as he does not know how to use his BP machine. He was bradycardic on admission with no active chest pain but reported chest pain 1.5 months ago that has since resolved. He missed a cardiology appointment. CT of the head completed in the ER shows new remote basal ganglia lacunar infarcts. Teleneurology was consulted for management. Currently, the patient is not having any symptoms. Number of Documented HPI Elements: 4+ Medical History Other Medical History: per HPI Allergies Allergies: NKDA Medications Anti-Coagulants: None Anti-Platelets: None Vital Signs Temperature: Afebrile Blood Pressure (mmHg): 143/76 Heart Rate (bpm): 52 Respiration Rate (/min): 14 O2 Sat (%): 99 Date and Time: 03/18/2024 06:18:15 PM ET Review Of Systems Neurological: See HPI Psychiatric: All Negative Cardiovascular: See HPI Ears, Nose, Throat: All Negative Respiratory: All Negative Gastrointestinal: All Negative Genitourinary: See HPI Musculoskeletal: See HPI Ophthalmology: See HPI Exam Exam: Mental Status: AAOx3 Cranial Nerves: CN 2-12 appear intact Face: appears to be symmetrical Motor: Normal/symmetrical throughout Sensation: normal to LT/P Coordination: normal based on finger to nose and heel to gavin Gait: unable to assess due to patient safety Assessment and Recommendations Assessment: Near syncope and positional vertigo may be posterior circulation symptoms due to vertebro-basilar insufficiency. In addition, the history of migraine make the patient more likely to have vestibular migraine. More benign causes may be positional vertigo. However, with the new findings of chronic lacunar infarcts in the bilateral basal ganglia, that were not present on prior images, the patient should have further work-up. Recommendations: 1. Continue telemetry monitoring and perform Q4 hour neuro- checks 2. MRI brain without contrast and MRA head/neck without contrast 3. Echocardiogram with bubble study 4. Check HbA1c, lipid panel, B12, folate, TSH, T3, T4, vitamin D level, homocysteine level 5. Aspirin 81 mg daily 6. Lipitor 40 mg daily 7. Fluids with NS at 100 mL/hr 8. Permissive HTN for 36 hours after symptom onset (only treat BP higher than 220/110 mm Hg) 9. PT/OT eval and treatment 10. Stroke education 11. Case management for disposition Disposition: Continue current admission status Diagnosis Impression: Other Diagnosis Other: Vertigo and near syncope Case discussed with: Nurse Lory ICD-10 Code ICD-10 Code (Primary): R55 : Syncope and collapse ICD-10 Code: R42 : Dizziness and giddiness ICD-10 Code: G43.909 : Migraine, unspecified, not intractable, without status migrainosus Attestation Interaction Mode: Video & Phone Time of Phone Call : 03-18-2024 06:08 PM ET Time of Video Call : 03-18-2024 06:16 PM ET Interaction Attestation: Clinical telemedicine services delivered using HIPAA- compliant interactive video-audio telecommunications while the patient and the rendering provider were not in the same physical location. Written report was provided to the requesting provider. Evaluation Duration (mins): 47 Gallego Timer Summary ED Arrival Date and Time: 03-18-2024 11:16 AM ET Date and Time of Request: 03-18-2024 04:57 PM ET Physician Signature This document was electronically signed by: Sotero Lipscomb MD
[2024-03-18] MEDS: TOPIRAMATE PO SCH (21:05)
[2024-03-18] MEDS: AMOXIL 500 MG PO SCH (21:05)
[2024-03-18] MEDS: ZOCOR 20MG PO SCH (21:05)
[2024-03-18] MEDS: ULTRAM 50 MG PO PRN (21:14)
[2024-03-19 05:03] LABS: Hematocrit 50.3 % (42-50); Hemoglobin 17.3 g/dL (12.5-18.0); Mean Cell Volume 87.3 fL (78-100); Mean Corpuscular Hgb Concent. 34.4 g/dL (32-36); Mean Platelet Volume 11.8 fL (7.5-11.0); Platelet Count 132 x10^3/uL (150-450); Red Blood Count 5.76 x10^6/uL (4.1-5.6); White Blood Count 5.9 x10^3/uL (4.0-10.5)
[2024-03-19 05:54] LABS: Slide Review YES
[2024-03-19 06:23] LABS: ALBUMIN 3.6 g/dL (3.5-5.0); ANION GAP 10.7 MEQ/L (5-15); Calcium 8.8 mg/dL (8.4-10.2); Creatinine 1 1.06 mg/dL (0.66-1.25); EST GLOMERULAR FILTRATION RATE 76.4 ML/MIN; Folate (Folic Acid) 9.22 ng/mL (2.76 - >20); Potassium 3.6 mmol/L (3.5-5.1); TSH, 3RD Generation 1.181 mIU/L (0.470-4.680); Total Protein 6.4 g/dL (6.3-8.2)
[2024-03-19] MEDS ORDERED: MEDICATION INTERVENTION MC SCH (07:30)
[2024-03-19] MEDS: Flomax 0.4 MG PO SCH (08:50)
[2024-03-19] MEDS: AMOXIL 500 MG PO SCH (08:50)
[2024-03-19] MEDS: Protonix 40MG Tablet PO SCH (08:50)
[2024-03-19] MEDS: ECOTRIN 81 MG PO SCH (08:50)
[2024-03-19] MEDS: CLARITIN 10 MG PO SCH (08:50)
[2024-03-19] MEDS: Flonase NASAL NS SCH (08:51)
[2024-03-19] MEDS: VITAMIN D2 PO SCH (08:51)
--- NOTE | 2024-03-19 11:10 | XRAY ---
Indication: Near syncope. Lacunar infarcts on CT head one day earlier. Sagittal, coronal, and axial MRI brain performed without contrast using T1, T2, FLAIR, diffusion, and ADC sequences. Comparison: None Age-appropriate global atrophy and mild periventricular degenerative micro-ischemia signal bilaterally. Basal ganglia demonstrates remote lacunar infarcts bilaterally. Diffusion images negative for restricted signal. No acute intracranial hemorrhage, abnormal extra-axial fluid collection, or mass effect. Fourth ventricle is midline without hydrocephalus. 7/8 cranial nerve complex bilaterally symmetric. Normal flow-void signal within the major intracerebral circulation. Normal appearing craniocervical junction and sella turcica. Near complete opacification left maxillary sinus and lesser degree right maxillary/both ethmoid/left frontal sinuses. Impression: 1. Atrophy and degenerative micro-ischemia within normal limits. 2. Remote bilateral basal ganglia lacunar infarcts. 3. Incidental paranasal sinus disease.
[2024-03-19 11:36] VITALS: RESP 20; TEMP 97.4
--- NOTE | 2024-03-19 13:02 | PCM.NOTE ---
Date and Time: 03/19/24 1255 - Review of Systems Constitutional: No Fever, No Chills Eyes: No Symptoms Ears, Nose, & Throat: No Symptoms Respiratory: No Cough, No Short Of Breath Cardiac: No Chest Pain, No Edema, No Syncope Abdominal/Gastrointestinal: No Abdominal Pain, No Nausea, No Vomiting, No Diarrhea Genitourinary Symptoms: No Dysuria Musculoskeletal: No Back Pain, No Neck Pain Skin: No Rash Neurological: No Dizziness, No Focal Weakness, No Sensory Changes Psychological: No Symptoms Endocrine: No Symptoms Hematologic/Lymphatic: No Symptoms Immunological/Allergic: No Symptoms Objective Exam General Appearance: no apparent distress, alert Neurologic Exam: alert, oriented x 3, cooperative, normal mood/affect, nml cerebellar function, sensation nml, No motor deficits Skin Exam: normal color, warm, dry Eye Exam: PERRL, EOMI, eyes nml inspection Ears, Nose, Throat Exam: normal ENT inspection, pharynx normal, moist mucous membranes Neck Exam: normal inspection, non-tender, supple, full range of motion Respiratory Exam: normal breath sounds, lungs clear, No respiratory distress Cardiovascular Exam: regular rate/rhythm, normal heart sounds, bradycardia Gastrointestinal/Abdomen Exam: soft, No tenderness, No mass Extremity Exam: normal inspection, normal range of motion Back Exam: normal inspection, normal range of motion, No CVA tenderness, No vertebral tenderness Male Genitalia Exam: deferred Rectal Exam: deferred Objective Data Vital Signs: Vital Signs - 24 hr Temp Pulse Resp BP BP Pulse Ox 03/19/24 11:36 97.4 F 56 L 20 150/89 97 03/19/24 07:37 97.5 F 52 L 16 123/78 97 03/19/24 07:27 51 L 16 96 03/19/24 04:00 97.5 F 47 L 20 119/67 97 03/18/24 23:33 97.5 F 46 L 20 128/69 96 03/18/24 19:51 97.3 F 48 L 20 149/87 94 L 03/18/24 19:05 47 L 16 93 L 03/18/24 16:02 52 L 24 95 03/18/24 15:50 97.5 F 52 L 24 143/78 91 L 03/18/24 15:27 96 03/18/24 15:00 52 L 125/88 97 03/18/24 14:30 48 L 126/82 95 03/18/24 14:29 49 L 126/83 95 03/18/24 13:00 49 L 151/100 96 Pain Assessment - Last Documented Pain Intensity 0 Intake and Output: Intake & Output 03/17/24 03/18/24 03/19/24 03/20/24 11:59 11:59 11:59 11:59 Intake Total 1676 Balance 1676 Weight 97.4 kg 95.8 kg Lab Results: Lab Results-Last 24 Hours 03/18/24 03/18/24 03/19/24 Range/Units 14:19 19:57 04:30 WBC 5.9 (4.0-10.5) x10^3/uL RBC 5.76 H (4.1-5.6) x10^6/uL Hgb 17.3 (12.5-18.0) g/dL Hct 50.3 H (42-50) % MCV 87.3 (78-100) fL MCH 30.0 (26-32) pg MCHC 34.4 (32-36) g/dL RDW 16.0 H (11.5-14.0) % Plt Count 132 L (150-450) x10^3/uL MPV 11.8 H (7.5-11.0) fL Sodium (135-145) mmol/L Potassium (3.5-5.1) mmol/L Chloride (98-107) mmol/L Carbon Dioxide (22-30) mmol/L Anion Gap (5-15) MEQ/L BUN (9-20) mg/dL Creatinine (0.66-1.25) mg/dL Estimated GFR ML/MIN Glucose (74-106) mg/dL Calcium (8.4-10.2) mg/dL Total Bilirubin (0.2-1.3) mg/dL AST (17-59) U/L ALT (0-50) U/L Alkaline Phosphatase (38-126) U/L Troponin I < 0.012 < 0.012 (0.000-0.033) ng/mL Serum Total Protein (6.3-8.2) g/dL Albumin (3.5-5.0) g/dL Triglycerides (30-150) mg/dL Cholesterol (50-200) mg/dL LDL Cholesterol (30-100) mg/dL HDL Cholesterol (40-60) mg/dL Heart Disease Risk Ratio Vitamin B12 (239-931) pg/mL 25-OH Vitamin D Total (30-100) ng/mL Folic Acid (2.76 - >20) ng/mL TSH 3rd Generation (0.470-4.680) mIU/L Slides for Path Review YES 03/19/24 03/19/24 Range/Units 04:30 04:30 WBC (4.0-10.5) x10^3/uL RBC (4.1-5.6) x10^6/uL Hgb (12.5-18.0) g/dL Hct (42-50) % MCV (78-100) fL MCH (26-32) pg MCHC (32-36) g/dL RDW (11.5-14.0) % Plt Count (150-450) x10^3/uL MPV (7.5-11.0) fL Sodium 142 (135-145) mmol/L Potassium 3.6 (3.5-5.1) mmol/L Chloride 114 H (98-107) mmol/L Carbon Dioxide 21 L (22-30) mmol/L Anion Gap 10.7 (5-15) MEQ/L BUN 14 (9-20) mg/dL Creatinine 1.06 (0.66-1.25) mg/dL Estimated GFR 76.4 ML/MIN Glucose 92 (74-106) mg/dL Calcium 8.8 (8.4-10.2) mg/dL Total Bilirubin 1.00 (0.2-1.3) mg/dL AST 28 (17-59) U/L ALT 34 (0-50) U/L Alkaline Phosphatase 54 (38-126) U/L Troponin I (0.000-0.033) ng/mL Serum Total Protein 6.4 (6.3-8.2) g/dL Albumin 3.6 (3.5-5.0) g/dL Triglycerides 158 H (30-150) mg/dL Cholesterol 144 (50-200) mg/dL LDL Cholesterol 98 (30-100) mg/dL HDL Cholesterol 30 L (40-60) mg/dL Heart Disease Risk Ratio 5.0 Vitamin B12 530 (239-931) pg/mL 25-OH Vitamin D Total 76.3 (30-100) ng/mL Folic Acid 9.22 (2.76 - >20) ng/mL TSH 3rd Generation 1.181 (0.470-4.680) mIU/L Slides for Path Review Radiology Exams: Radiology Procedures Category Date Time Status CAROTID BILATERAL [US] Routine Exams 03/18/24 15:53 Completed CHEST 1 VIEW (PORTABLE) Stat Exams 03/18/24 11:46 Completed ECHO W/2D AND DOPPLER [US] Routine Exams 03/18/24 15:52 Taken HEAD WITHOUT CONTRAST [CT] Stat Exams 03/18/24 13:00 Completed MRI BRAIN W/O CONTRAST [MRI] Routine Exams 03/19/24 16:01 Completed Assessment/Plan (1) Bradycardia Current Visit: Yes Status: Acute Code(s): R00.1 - BRADYCARDIA, UNSPECIFIED (2) Dizziness Current Visit: Yes Status: Acute Code(s): R42 - DIZZINESS AND GIDDINESS (3) Near syncope Current Visit: Yes Status: Acute (4) Sleep apnea Current Visit: Yes Status: Chronic Code(s): G47.30 - SLEEP APNEA, UNSPECIFIED (5) Dehydration Current Visit: Yes Status: Acute Code(s): E86.0 - DEHYDRATION (6) Lacunar infarction Current Visit: Yes Status: Chronic Code(s): I63.81 - OTHER CEREB INFRC DUE TO OCCLS OR STENOSIS OF SMALL ARTERY (7) Paranasal sinus disease Current Visit: Yes Status: Chronic Code(s): J34.9 - UNSPECIFIED DISORDER OF NOSE AND NASAL SINUSES (8) Hx of migraines Current Visit: Yes Status: Acute Assessment & Plan: (1) Bradycardia Current Visit: Yes Status: Acute Assessment & Plan: - HR 40-50's- pt reports this is chroinc- however BP med may have exacerbated - EKG - tele - may be cause of near syncope - echo - does take tramadol for pain for OA - Pt took 25mg of metoprolol from an old script he had at home. 03/19 - HR in 40's at night and 50's today - Echo EF 53%- per product technician- awaiting cardiology to read - Carotid duplex negative Code(s): R00.1 - BRADYCARDIA, UNSPECIFIED (2) Dizziness Current Visit: Yes Status: Acute Assessment & Plan: - is bradycardic on monitor - up as tolerated - carotid duplex - near syncope 03/19 - resolved Code(s): R42 - DIZZINESS AND GIDDINESS (3) Near syncope Current Visit: Yes Status: Acute Assessment & Plan: - see aboves plans - CT head: Impression: Continued nonacute senile brain. New remote basal ganglia lacunar infarcts. Again incidental paranasal sinus disease. - MRI brain: negative for acute concern 03/19 - orthostats (4) Sleep apnea Current Visit: Yes Status: Chronic Assessment & Plan: - continue CPAP at night Code(s): G47.30 - SLEEP APNEA, UNSPECIFIED (5) Dehydration Current Visit: Yes Status: Acute Assessment & Plan: - anion gap 16.9 - IVF 03/19 - resolved - IVF stopped Code(s): E86.0 - DEHYDRATION (6) Lacunar infarction Current Visit: Yes Status: Chronic Assessment & Plan: - appears chronic per CT head - MRI negative for acute concern - neurology consult Code(s): I63.81 - OTHER CEREB INFRC DUE TO OCCLS OR STENOSIS OF SMALL ARTERY (7) Paranasal sinus disease Current Visit: Yes Status: Chronic Assessment & Plan: - as seen on CT - Continue daily allergy medication - Flonase started - antibiotics Code(s): J34.9 - UNSPECIFIED DISORDER OF NOSE AND NASAL SINUSES (8) Hx of migraines Current Visit: Yes Status: Acute Assessment & Plan: - continue Topamax - may be migraine related Code(s): Z86.69 - PERSONAL HISTORY OF DIS OF THE NERVOUS SYS AND SENSE ORGANS
--- NOTE | 2024-03-19 13:14 | PCM.DS ---
Discharge Summary Date of Admission: 03/18/24 15:30 Date of Discharge: 03/19/24 Admitting Physician: NIGEL CATES MD Consults: Consults on Case 03/18/24 16:00 Consult Neurology ROUTINE Primary Care Provider: TAWANA VILLAR Allergies Allergies No Known Drug Allergies Allergy (Verified 03/18/24 11:20) Hospital Summary - Hospital Course Hospital Course: 03/18/24 is a 68 year old male with PMHX of migraines, sleep apnea, cataracts, HTN, OA (of BL knees and lumbar spine- follows pain management), Hernia, chronic bradycardia since childhood, and prostate problems. He presented to our ED for evaluation of near syncope, intermittent dizziness, headache that started in right eye, and right arm pain. Patient states today his right arm started to get numb and tingle, sxs have been constant. He also has increased dizziness when turning his head to the right. He states he has chronic right eye problems since cataract removal. When he has migraines it always starts in his right eye as well. Symptoms have been ongoing for over a day. Symptoms are moderate in intensity. . He states he felt like his BP was getting high at home and took one of his old BP meds but cut it in half. His old blood pressure medication is metoprolol 50 mg. He did not check his BP prior to taking the medication as he does not know how to use the blood pressure machine he has at home. Pt is bradycardic on admission. No active chest pain at this time. He does report chest pain about one and half months ago that has resolved. He was to see a communications maintainer but missed the appointment. CT of head completed in ER and shows New remote basal ganglia lacunar infarcts. Again incidental paranasal sinus disease. He denies ever being diagnosed with lacunar infarcts in the past. MRI of brain, and neurology consult ordered for further evaluation. Echo and carotid duplex ordered. Will check orthostats in the AM. He denies CP, Abd. pain, N/V/D. 03/19/24 Pt resting in bed. MRI of brain negative for acute concern. Discussed with pt findings of all results. He would like OP cardiology and neurology referral. Will continue meds as recommended by neurology. Discussed not to take old BP meds at home anymore. Advised to keep a log of BP results daily and when feeling like BP is elevated and take log to PCP to discuss. If BP is elevated pt is to call PCP for advisement. Pt denies CP, SOB, abd. pain, N/V/D. All sxs have resolved today. - Vitals & Intake/Output Vital Signs: Vital Signs Temperature 97.4 F 03/19/24 11:36 Pulse Rate 56 L 03/19/24 11:36 Respiratory Rate 20 03/19/24 11:36 Blood Pressure 150/89 03/19/24 11:36 O2 Sat by Pulse Oximetry 97 03/19/24 11:36 Intake & Output: Intake & Output 03/17/24 03/18/24 03/19/24 03/20/24 11:59 11:59 11:59 11:59 Intake Total 1676 Balance 1676 Weight 97.4 kg 95.8 kg - Lab Result Diagrams: 03/19/24 04:30 03/19/24 04:30 Lab Results-Last 24 Hrs: Lab Results-Last 24 Hours 03/18/24 03/18/24 03/19/24 Range/Units 14:19 19:57 04:30 WBC 5.9 (4.0-10.5) x10^3/uL RBC 5.76 H (4.1-5.6) x10^6/uL Hgb 17.3 (12.5-18.0) g/dL Hct 50.3 H (42-50) % MCV 87.3 (78-100) fL MCH 30.0 (26-32) pg MCHC 34.4 (32-36) g/dL RDW 16.0 H (11.5-14.0) % Plt Count 132 L (150-450) x10^3/uL MPV 11.8 H (7.5-11.0) fL Sodium (135-145) mmol/L Potassium (3.5-5.1) mmol/L Chloride (98-107) mmol/L Carbon Dioxide (22-30) mmol/L Anion Gap (5-15) MEQ/L BUN (9-20) mg/dL Creatinine (0.66-1.25) mg/dL Estimated GFR ML/MIN Glucose (74-106) mg/dL Calcium (8.4-10.2) mg/dL Total Bilirubin (0.2-1.3) mg/dL AST (17-59) U/L ALT (0-50) U/L Alkaline Phosphatase (38-126) U/L Troponin I < 0.012 < 0.012 (0.000-0.033) ng/mL Serum Total Protein (6.3-8.2) g/dL Albumin (3.5-5.0) g/dL Triglycerides (30-150) mg/dL Cholesterol (50-200) mg/dL LDL Cholesterol (30-100) mg/dL HDL Cholesterol (40-60) mg/dL Heart Disease Risk Ratio Vitamin B12 (239-931) pg/mL 25-OH Vitamin D Total (30-100) ng/mL Folic Acid (2.76 - >20) ng/mL TSH 3rd Generation (0.470-4.680) mIU/L Slides for Path Review YES 03/19/24 03/19/24 Range/Units 04:30 04:30 WBC (4.0-10.5) x10^3/uL RBC (4.1-5.6) x10^6/uL Hgb (12.5-18.0) g/dL Hct (42-50) % MCV (78-100) fL MCH (26-32) pg MCHC (32-36) g/dL RDW (11.5-14.0) % Plt Count (150-450) x10^3/uL MPV (7.5-11.0) fL Sodium 142 (135-145) mmol/L Potassium 3.6 (3.5-5.1) mmol/L Chloride 114 H (98-107) mmol/L Carbon Dioxide 21 L (22-30) mmol/L Anion Gap 10.7 (5-15) MEQ/L BUN 14 (9-20) mg/dL Creatinine 1.06 (0.66-1.25) mg/dL Estimated GFR 76.4 ML/MIN Glucose 92 (74-106) mg/dL Calcium 8.8 (8.4-10.2) mg/dL Total Bilirubin 1.00 (0.2-1.3) mg/dL AST 28 (17-59) U/L ALT 34 (0-50) U/L Alkaline Phosphatase 54 (38-126) U/L Troponin I (0.000-0.033) ng/mL Serum Total Protein 6.4 (6.3-8.2) g/dL Albumin 3.6 (3.5-5.0) g/dL Triglycerides 158 H (30-150) mg/dL Cholesterol 144 (50-200) mg/dL LDL Cholesterol 98 (30-100) mg/dL HDL Cholesterol 30 L (40-60) mg/dL Heart Disease Risk Ratio 5.0 Vitamin B12 530 (239-931) pg/mL 25-OH Vitamin D Total 76.3 (30-100) ng/mL Folic Acid 9.22 (2.76 - >20) ng/mL TSH 3rd Generation 1.181 (0.470-4.680) mIU/L Slides for Path Review - Radiology Exams Ordered Rad Exams-Entire Visit: Radiology Procedures Category Date Time Status CAROTID BILATERAL [US] Routine Exams 03/18/24 15:53 Completed CHEST 1 VIEW (PORTABLE) Stat Exams 03/18/24 11:46 Completed ECHO W/2D AND DOPPLER [US] Routine Exams 03/18/24 15:52 Taken HEAD WITHOUT CONTRAST [CT] Stat Exams 03/18/24 13:00 Completed MRI BRAIN W/O CONTRAST [MRI] Routine Exams 03/19/24 16:01 Completed - Procedures and Test Procedures and Tests throughout Hospitalization: Therapy Orders & Screens 03/18/24 16:02 RT Miscellaneous Order ROUTINE Comment: Physician Instructions: Reason For Exam: CPAP at night- may use home machine Diagnosis: ACS 03/18/24 16:08 PT Eval & Treat (MD Order) ONCE Reason for Eval:: dizziness, old infarcts seen on CT brain Diagnosis: ACS OT Eval and Treat (MD Order) ONCE Comment: Physician Instructions: Reason For Exam: dizziness, old infarcts seen on CT brain Evaluate: Yes Treat: Yes Diagnosis: ACS 03/18/24 16:10 RT Screen per Nursing Assess ONCE Comment: Protocol Order Physician Instructions: Greater than 3 points order RT Admission Screen Reason For Exam: Triggered on Admission Diagnosis: ACS Diagnosis: ACS Pneumonia: No Home O2: No Asthma: No CHF: No Home CPAP/BIPAP: Yes Home Nebs/MDI: Yes Total Points: 10 03/19/24 07:00 Respiratory Therapy Assessment DAILY Comment: Diagnosis: dizziness, near syncope Discharge Exam General Appearance: no apparent distress, alert Neurologic Exam: alert, oriented x 3, cooperative, normal mood/affect, nml cer ebellar function, sensation nml, No motor deficits Eye Exam: PERRL, EOMI, eyes nml inspection Ears, Nose, Throat Exam: normal ENT inspection, pharynx normal, moist mucous membranes Neck Exam: normal inspection, non-tender, supple, full range of motion Respiratory Exam: normal breath sounds, lungs clear, No respiratory distress Cardiovascular Exam: regular rate/rhythm, normal heart sounds Gastrointestinal/Abdomen Exam: soft, No tenderness, No mass Male Genitalia Exam: deferred Rectal Exam: deferred Back Exam: normal inspection, normal range of motion, No CVA tenderness, No vertebral tenderness Extremity Exam: normal inspection, normal range of motion Skin Exam: normal color, warm, dry Final Diagnosis/Problem List - Final Discharge Diagnosis/Problem (1) Bradycardia Current Visit: Yes Status: Acute Code(s): R00.1 - BRADYCARDIA, UNSPECIFIED (2) Dizziness Current Visit: Yes Status: Acute Code(s): R42 - DIZZINESS AND GIDDINESS (3) Near syncope Current Visit: Yes Status: Acute (4) Sleep apnea Current Visit: Yes Status: Chronic Code(s): G47.30 - SLEEP APNEA, UNSPECIFIED (5) Dehydration Current Visit: Yes Status: Acute Code(s): E86.0 - DEHYDRATION (6) Lacunar infarction Current Visit: Yes Status: Chronic Code(s): I63.81 - OTHER CEREB INFRC DUE TO OCCLS OR STENOSIS OF SMALL ARTERY (7) Paranasal sinus disease Current Visit: Yes Status: Chronic Code(s): J34.9 - UNSPECIFIED DISORDER OF NOSE AND NASAL SINUSES (8) Hx of migraines Current Visit: Yes Status: Acute Assessment & Plan: (1) Bradycardia Current Visit: Yes Status: Acute Assessment & Plan: - HR 40-50's- pt reports this is chroinc- however BP med may have exacerbated - EKG - tele - may be cause of near syncope - echo - does take tramadol for pain for OA - Pt took 25mg of metoprolol from an old script he had at home. 03/19 - HR in 40's at night and 50's today - Echo EF 53%- per alarm field technician- awaiting cardiology to read - Carotid duplex negative Code(s): R00.1 - BRADYCARDIA, UNSPECIFIED (2) Dizziness Current Visit: Yes Status: Acute Assessment & Plan: - is bradycardic on monitor - up as tolerated - carotid duplex - near syncope 03/19 - resolved Code(s): R42 - DIZZINESS AND GIDDINESS (3) Near syncope Current Visit: Yes Status: Acute Assessment & Plan: - see aboves plans - CT head: Impression: Continued nonacute senile brain. New remote basal ganglia lacunar infarcts. Again incidental paranasal sinus disease. - MRI brain: negative for acute concern 03/19 - orthostats- negative (4) Sleep apnea Current Visit: Yes Status: Chronic Assessment & Plan: - continue CPAP at night Code(s): G47.30 - SLEEP APNEA, UNSPECIFIED (5) Dehydration Current Visit: Yes Status: Acute Assessment & Plan: - anion gap 16.9 - IVF 03/19 - resolved - IVF stopped Code(s): E86.0 - DEHYDRATION (6) Lacunar infarction Current Visit: Yes Status: Chronic Assessment & Plan: - appears chronic per CT head - MRI negative for acute concern - neurology consult Code(s): I63.81 - OTHER CEREB INFRC DUE TO OCCLS OR STENOSIS OF SMALL ARTERY (7) Paranasal sinus disease Current Visit: Yes Status: Chronic Assessment & Plan: - as seen on CT - Continue daily allergy medication - Flonase started - antibiotics Code(s): J34.9 - UNSPECIFIED DISORDER OF NOSE AND NASAL SINUSES (8) Hx of migraines Current Visit: Yes Status: Acute Assessment & Plan: - continue Topamax - may be migraine related Code(s): Z86.69 - PERSONAL HISTORY OF DIS OF THE NERVOUS SYS AND SENSE ORGANS Code(s): Z86.69 - PERSONAL HISTORY OF DIS OF THE NERVOUS SYS AND SENSE ORGANS - Discharge Discharge Date: 03/19/24 Disposition: Home, Self-Care Condition: Stable Prescriptions: New Aspirin EC 81 mg [Ecotrin 81 mg] 81 mg PO DAILY 30 Days #30 tablet Fluticasone Propionate [Flonase NASAL] 1 gm NS DAILY 30 Days #1 unit Atorvastatin Calcium [Lipitor 40Mg] 40 mg PO DAILY 30 Days #30 tablet Continue Omeprazole 40 mg PO DAILY Tamsulosin HCl 0.4 mg [Flomax 0.4 MG] 0.4 mg PO DAILY Topiramate 50 mg PO BID Loratadine 10 mg [Claritin 10 mg] 10 mg PO DAILY Ergocalciferol (Vitamin D2) [Vitamin D2] 1,250 mcg PO WEEKLY Testosterone Enanthate [Xyosted] 200 mg IM UD Tramadol HCl 50 mg [Ultram 50 mg] 50 mg PO Q6H PRN PRN PRN Reason: Pain Albuterol Sulfate [Albuterol Sulfate Hfa] 2 puff IH Q6HPRN PRN PRN Reason: Shortness Of Breath/Wheezing Albuterol Sulfate 1 neb IH Q6HPRN PRN PRN Reason: Shortness Of Breath/Wheezing Follow up with: TAWANA VILLAR [Primary Care Provider] - 03/25/24 9:45 am FE YUN [CONSULTING PHYSICIAN] - Office will call patient
[2024-03-19 13:24] VITALS: O2SAT 93
[2024-03-19 13:26] VITALS: BP 151/93; PULSE 65
--- NOTE | 2024-03-19 13:46 | ECHO ---
Transthoracic echocardiographic examination and color Doppler was done on 03/18/2024. INDICATION: Bradycardia. IMPRESSION: 1) NO REGIONAL WALL MOTION ABNORMALITY. ESTIMATED GLOBAL LEFT VENTRICULAR EJECTION FRACTION BETWEEN 55 TO 60%. 2) TRACE MITRAL REGURGITATION. 3) TRACE TRICUSPID REGURGITATION. RIGHT VENTRICULAR SYSTOLIC PRESSURE OF 31 MM OF MERCURY. 4) LEFT VENTRICULAR HYPERTROPHY. 5) LEFT VENTRICULAR DIASTOLIC DYSFUNCTION. 6) MILDLY DILATED RIGHT SIDED CHAMBER. The left ventricle is visualized and demonstrated adequate motion of all the segments. Estimated global left ventricular ejection fraction between 55 to 60%. There is mild left ventricular hypertrophy. The mitral valve is seen and this opens adequately. There is trace mitral regurgitation. Tissue Doppler study of the lateral mitral annulus is suggestive of left ventricular diastolic dysfunction. The aortic valve opens adequately. There is no significant gradient across the left ventricular outflow tract. The right side chambers are mildly dilated. There is trace tricuspid regurgitation. Right ventricular systolic pressure of 31 mm of Mercury.
== END 2024-03-19 13:53 | disposition home or self-care (01) ==
LOC: ED 11:16 → MED SURG 15:30
PROVIDERS: ADMIT Internal Medicine; ATTEND Internal Medicine
DX: R00.1 Bradycardia, unspecified (principal); R42 Dizziness and giddiness; R55 Syncope and collapse; G47.30 Sleep apnea, unspecified; E86.0 Dehydration; I63.81 Other cerebral infarction due to occlusion or stenosis of small artery; J34.9 Unspecified disorder of nose and nasal sinuses; I10 Essential (primary) hypertension; Z86.69 Personal history of other diseases of the nervous system and sense organs; Z79.899 Other long term (current) drug therapy
CPT/HCPCS: 36000; 36415; 70450; 70551; 71045; 80053; 80061; 82306; 82607; 82746; 83090; 83721; 83880; 84436; 84443; 84479; 84484; 85025; 85027; 93005; 93041; 93306; 93880; 94760; 94762; 97161; 99285; Q3014; 93268; A9270-GY; G0378